=== PATIENT | female | born 1950 | race Caucasian/White ===

== ENCOUNTER 2022-07-23 08:04 | Outpatient (REF) | payer MEDICARE, OTHER, SELFPAY ==
--- NOTE | ~2022-07-23 | CT_ITS ---
CT ANGIOGRAM NECK CLINICAL INFORMATION: Dizziness. COMPARISON: None available. TECHNIQUE: Test bolus sequences followed by intravenous administration 70 mL of Omnipaque 350. Helical imaging was performed in the axial plane from the thoracic inlet to the skull base. The data was processed at the computer technologist workstation for generation of MIP sequences. Angled MIPs and volume rendered reformatted images were also generated at an offline 3D workstation under concurrent supervision. Stenoses are assessed in accordance with NASCET criteria unless otherwise indicated. This CT examination was performed using dose optimization techniques as appropriate, variously including the following: *Automated exposure control *Adjustment of mA and/or kV according to patient size (this includes techniques or standardized protocols for targeted exams where dose is matched to indication/reason for exam; i.e. extremities or head) *Use of iterative reconstruction technique FINDINGS: No significant arterial stenoses within the neck. Cervical arterial vasculature is widely patent. There is mild atherosclerotic calcification involving the carotid bifurcations bilaterally without significant stenosis. The right vertebral artery is dominant and the cervical vertebral arteries are widely patent. There is a pneumatocele within the left lung apex. There is multilevel cervical spondylosis, greatest at C5-C6 and C6-C7. The paranasal sinuses and the mastoid air cells are clear. Torus palatinus. There are no significant soft tissue findings within the neck. CT/CT angio neck IMPRESSION: - The cervical arterial vasculature is widely patent. - There is multilevel cervical spondylosis, greatest at C5-C6 and C6-C7.
[2022-07-23] MEDS: iohexoL 350 MG/ML 100 ML INFUS..BTL IV (09:15)
== END 2022-07-23 08:05 | disposition home or self-care (01) ==
LOC: HO.CT 08:04
PROVIDERS: Visit Provider Psychiatry & Neurology Neurology
DX: R42 Dizziness and giddiness (principal)
CPT/HCPCS: 70498; Q9967

== ENCOUNTER 2022-11-14 10:56 | Outpatient (REF) | payer MEDICARE, OTHER, SELFPAY ==
--- NOTE | ~2022-11-14 | MR_ITS ---
EXAMINATION: MR BRAIN WITHOUT CONTRAST CLINICAL INFORMATION: Dizziness. Rule out posterior fossa. Ataxia. Presyncopal episodes. COMPARISON: None available. TECHNIQUE: Multiplanar, multisequence imaging of the brain was performed without intravenous contrast. FINDINGS: There is no acute infarction, hemorrhage, mass, or extra-axial fluid collection. The ventricles are normal in size without hydrocephalus. A few minimal nonspecific foci of T2/FLAIR hyperintensity are seen within the cerebral white matter. The posterior fossa structures appear normal. The cerebellopontine angle cisterns appear normal. The major arterial flow voids are preserved at the skull base. There are bilateral lens replacements. MR/MR head/brain wo con IMPRESSION: No acute infarct, mass lesion, intracranial hemorrhage, or evidence of hydrocephalus. No posterior fossa abnormality.
== END 2022-11-14 10:57 | disposition home or self-care (01) ==
LOC: HO.MRI 10:56
PROVIDERS: PCP Pediatrics; Visit Provider Psychiatry & Neurology Neurology
DX: R42 Dizziness and giddiness (principal)
CPT/HCPCS: 70551